=== PATIENT | male | born 1930 | race Caucasian/White ===

== ENCOUNTER 2018-03-29 07:17 | Inpatient (IN) | payer BC, MEDICARE ==
[~2018-03-29] VITALS: Ht 165.1 cm; Wt 60.0 kg
[2018-03-29] MEDS ORDERED: ASPIRIN 81 MG TABLET CHEW PO ONE (07:30)
[2018-03-29] MEDS ORDERED: SODIUM CHLORIDE FLUSH 10ML SYR IVF ONE (07:30)
[2018-03-29 07:54] LABS: ALBUMIN 3.4 g/dL (3.4-5.0); ANION GAP 5 mmol/L (5-15); CALCIUM 8.7 mg/dL (8.5-10.1); CHLORIDE 108 mmol/L (98-107); CREATININE 0.91 mg/dL (0.7-1.3)
[2018-03-29 07:55] LABS: BASOPHILS # (AUTO) 0.04 x10^3/uL (0-0.1); BASOPHILS % (AUTO) 1 % (0-1); EOSINOPHILS # (AUTO) 0.13 x10^3/uL (0-0.4); EOSINOPHILS % (AUTO) 2 % (1-7); LYMPHOCYTES # (AUTO) 1.51 x10^3/uL (1-3.4); LYMPHOCYTES % (AUTO) 20 % (22-44); MD NO; MEAN CORPUSCULAR HEMOGLOBIN 32.6 pg (27.5-34.5); MEAN CORPUSCULAR HGB CONC 33.5 g/dL (33.2-36.2); MEAN CORPUSCULAR VOLUME 97.1 fL (81-97); MONOCYTES # (AUTO) 0.71 x10^3/uL (0.2-0.8); MONOCYTES % (AUTO) 9 % (2-9); NEUTROPHILS # (AUTO) 5.14 x10^3/uL (1.8-6.8); NEUTROPHILS % (AUTO) 68 % (42-75); PLATELET COUNT 343 x10^3/uL (130-400); RED BLOOD COUNT 4.43 x10^6/uL (4.38-5.82); RED CELL DISTRIBUTION WIDTH 14.1 % (9.4-14.8)
[2018-03-29 07:57] LABS: TROPONIN I < 0.015 ng/mL (0.000-0.045)
[2018-03-29] MEDS ORDERED: ATOR10TA9 PO (09:59)
[2018-03-29] MEDS ORDERED: ASPI-496 PO (10:00)
[2018-03-29] MEDS ORDERED: ASPIRIN 81 MG TABLET CHEW ONE (10:01)
[2018-03-29] MEDS ORDERED: ERYTHROMYCIN OPHTH 0.5%, 1GM EACHEYE SCH (11:30)
[2018-03-29 11:37] LABS: THYROID STIMULATING HORMONE 3.55 mIU/L (0.358-3.740)
[2018-03-29 11:44] VITALS: BP 114/57
[2018-03-29] MEDS ORDERED: HEPARIN 5,000 UNITS/ML, 1ML IV ONE (12:00)
[2018-03-29] MEDS ORDERED: HEPARIN 5,000 UNITS/ML, 1ML IV PRN (12:00)
[2018-03-29] MEDS ORDERED: HEPARIN 25,000 UNITS/500ML PMX 500 ML IV PRN (12:00)
[2018-03-29] MEDS ORDERED: ACETAMINOPHEN 325 MG TABLET PO PRN (13:30)
[2018-03-29] MEDS ORDERED: ONDANSETRON ODT 4 MG PO PRN (13:30)
[2018-03-29 13:39] VITALS: BP 117/66
[2018-03-29 13:44] VITALS: BP 108/62
[2018-03-29 13:46] VITALS: BP 114/69
[2018-03-29 13:47] VITALS: BP 121/79
[2018-03-29] MEDS: SODIUM CHLORIDE 0.9% 1,000 ML IV SCH (14:31)
[2018-03-29 20:22] VITALS: BP_SYST 114; BP_SYST 115; BP_SYST 122; BP_DIAS 61; BP_DIAS 65; BP_DIAS 73
[2018-03-29] MEDS ORDERED: ATORVASTATIN CALCIUM 80 MG PO SCH (21:00)
[2018-03-29] MEDS ORDERED: ATORVASTATIN 80 MG TABLET PO SCH (21:00)
[2018-03-30 02:18] VITALS: BP_SYST 104; BP_SYST 116; BP_SYST 118; BP_DIAS 64; BP_DIAS 66; BP_DIAS 70
[2018-03-30 02:37] LABS: BASOPHILS # (AUTO) 0.04 x10^3/uL (0-0.1); BASOPHILS % (AUTO) 1 % (0-1); EOSINOPHILS # (AUTO) 0.15 x10^3/uL (0-0.4); EOSINOPHILS % (AUTO) 2 % (1-7); LYMPHOCYTES # (AUTO) 1.76 x10^3/uL (1-3.4); LYMPHOCYTES % (AUTO) 24 % (22-44); MD NO; MEAN CORPUSCULAR HEMOGLOBIN 32.1 pg (27.5-34.5); MEAN CORPUSCULAR HGB CONC 33.3 g/dL (33.2-36.2); MEAN CORPUSCULAR VOLUME 96.3 fL (81-97); MEAN PLATELET VOLUME 7.3 fL (7.4-10.4); MONOCYTES # (AUTO) 0.72 x10^3/uL (0.2-0.8); MONOCYTES % (AUTO) 10 % (2-9); NEUTROPHILS # (AUTO) 4.62 x10^3/uL (1.8-6.8); NEUTROPHILS % (AUTO) 63 % (42-75); PLATELET COUNT 295 x10^3/uL (130-400); RED BLOOD COUNT 4.07 x10^6/uL (4.38-5.82); RED CELL DISTRIBUTION WIDTH 13.9 % (9.4-14.8)
[2018-03-30 02:47] LABS: ALANINE AMINOTRANSFERASE 23 U/L (12-78); ALBUMIN 2.8 g/dL (3.4-5.0); ANION GAP 4 mmol/L (5-15); CALCIUM 7.8 mg/dL (8.5-10.1); CHLORIDE 112 mmol/L (98-107); CHOLESTEROL, TOTAL 109 mg/dL (140-239); CREATININE 0.74 mg/dL (0.7-1.3); TRIGLYCERIDES 53 mg/dL (50-200); VLDL CHOLESTEROL 11 mg/dL (0-25)
[2018-03-30 02:49] LABS: ALKALINE PHOSPHATASE 82 U/L (45-117); BILIRUBIN,TOTAL 0.5 mg/dL (0.2-1.0); CHOL/HDL RATIO 2.1; HDL CHOL % 47 % (26-37); HDL CHOLESTEROL (DIRECT) 51 mg/dL (40-60); LDL CHOLESTEROL,CALCULATED 47 mg/dL (54-169); LDL/HDL RATIO 0.9 (0.5-3.0); TOTAL PROTEIN 5.7 g/dL (6.4-8.2)
[2018-03-30] MEDS: SODIUM CHLORIDE 0.9% 1,000 ML IV SCH (03:01)
[2018-03-30 07:44] VITALS: BP_SYST 118; BP_SYST 96; BP_DIAS 56; BP_DIAS 68
[2018-03-30 07:45] VITALS: BP 110/63
[2018-03-30] MEDS ORDERED: ASPIRIN 81 MG TABLET EC PO SCH (09:00)
[2018-03-30] MEDS ORDERED: APIXABAN 5 MG TABLET PO SCH (09:30)
[2018-03-30] MEDS ORDERED: APIXABAN 2.5 MG TABLET PO SCH (11:00)
[2018-03-30 12:46] VITALS: BP 116/68
[2018-03-30] MEDS ORDERED: APIX2.5T PO (15:06)
== END 2018-03-30 16:40 | disposition home or self-care (01) | DRG 74 ==
LOC: ED 08:47 → EDIP 10:24 → 5SO 11:38 → DCLOUNGE 03-30 16:29
PROVIDERS: ADMIT Family Medicine; ATTEND Family Medicine
DX: G90.8 Other disorders of autonomic nervous system (principal); D68.69 Other thrombophilia; E78.5 Hyperlipidemia, unspecified; H35.30 Unspecified macular degeneration; I25.10 Atherosclerotic heart disease of native coronary artery without angina pectoris; I48.91 Unspecified atrial fibrillation; I08.1 Rheumatic disorders of both mitral and tricuspid valves; W18.39XA Other fall on same level, initial encounter; I25.2 Old myocardial infarction; Z85.118 Personal history of other malignant neoplasm of bronchus and lung; Z87.891 Personal history of nicotine dependence; Z95.5 Presence of coronary angioplasty implant and graft; Y93.89 Activity, other specified; Y92.89 Other specified places as the place of occurrence of the external cause
CPT/HCPCS: 36415; 71045; 80048; 80053; 80061; 82040; 84443; 84481; 84484; 85025; 85520; 93005; 93306; 93880; 99285; G0378; J1644; J7030

== ENCOUNTER 2018-09-07 09:31 | Inpatient (IN) | payer BC, MEDICARE ==
[~2018-09-07] VITALS: Ht 167.6 cm; Wt 63.0 kg
[~2018-09-07 09:31] MED LIST: APIX2.5T PO; ASPI-496 PO; ATOR10TA9 PO
[2018-09-07] MEDS: SODIUM CHLORIDE 0.9% 1,000 ML IV SCH ×2 (09:48→17:48)
[2018-09-07] MEDS ORDERED: CEFAZOLIN PMX 1GM/50ML 50 ML IVPB ONE (10:00)
[2018-09-07 10:03] VITALS: BP 162/86
[2018-09-07] MEDS ORDERED: ROSU20TA PO (10:15)
[2018-09-07] MEDS ORDERED: NITR0.4T SL (10:15)
[2018-09-07] MEDS ORDERED: eye vitamin PO (10:18)
[2018-09-07 10:30] LABS: BASOPHILS # (AUTO) 0.03 x10^3/uL (0-0.1); BASOPHILS % (AUTO) 1 % (0-1); EOSINOPHILS # (AUTO) 0.05 x10^3/uL (0-0.4); EOSINOPHILS % (AUTO) 1 % (1-7); LYMPHOCYTES # (AUTO) 1.69 x10^3/uL (1-3.4); LYMPHOCYTES % (AUTO) 28 % (22-44); MD NO; MEAN CORPUSCULAR HEMOGLOBIN 31.8 pg (27.5-34.5); MEAN CORPUSCULAR HGB CONC 33.4 g/dL (33.2-36.2); MEAN CORPUSCULAR VOLUME 95.2 fL (81-97); MONOCYTES # (AUTO) 0.69 x10^3/uL (0.2-0.8); MONOCYTES % (AUTO) 11 % (2-9); NEUTROPHILS # (AUTO) 3.71 x10^3/uL (1.8-6.8); NEUTROPHILS % (AUTO) 60 % (42-75); PLATELET COUNT 366 x10^3/uL (130-400); RED BLOOD COUNT 4.18 x10^6/uL (4.38-5.82); RED CELL DISTRIBUTION WIDTH 13.3 % (9.4-14.8)
[2018-09-07 10:41] LABS: ANION GAP 5 mmol/L (5-15); CALCIUM 8.5 mg/dL (8.5-10.1); CHLORIDE 107 mmol/L (98-107)
[2018-09-07] MEDS ORDERED: FENTANYL PF 100 MCG/2ML ONE (11:19)
[2018-09-07] MEDS ORDERED: MIDAZOLAM 1 MG/ML, 2ML ONE (11:19)
[2018-09-07] MEDS ORDERED: LIDOCAINE 1%, 20ML ONE (11:19)
[2018-09-07] MEDS ORDERED: CEFAZOLIN PMX 1GM/50ML 50 ML ONE (11:19)
[2018-09-07] MEDS ORDERED: CEFAZOLIN 1,000 MG ONE (11:20)
[2018-09-07] MEDS ORDERED: NITROGLYCERIN 0.4 MG BOTTLE (25 TABS) SL PRN (13:00)
[2018-09-07] MEDS ORDERED: ACETAMINOPHEN 325 MG TABLET PO PRN (13:00)
[2018-09-07] MEDS ORDERED: Hold all anticoagulants for 24 hours MC PRN (13:00)
[2018-09-07 17:21] VITALS: BP 130/75
[2018-09-07 19:44] VITALS: BP 123/75
[2018-09-07] MEDS: SODIUM CHLORIDE FLUSH 10ML SYR IVF SCH (20:43)
[2018-09-07] MEDS: CEFAZOLIN PMX 1GM/50ML 50 ML IVPB SCH (20:43)
[2018-09-07] MEDS ORDERED: APIXABAN 2.5 MG TABLET PO SCH (21:00)
[2018-09-07] MEDS ORDERED: EYE VITAMIN PO SCH (21:00)
[2018-09-07] MEDS ORDERED: ATORVASTATIN 40 MG TABLET PO SCH (21:00)
[2018-09-08 01:51] VITALS: BP 148/74
[2018-09-08] MEDS: CEFAZOLIN PMX 1GM/50ML 50 ML IVPB SCH (04:55)
[2018-09-08 07:32] VITALS: BP 134/73
[2018-09-08] MEDS ORDERED: ACET325T14 PO (08:37)
[2018-09-08] MEDS: SODIUM CHLORIDE FLUSH 10ML SYR IVF SCH (10:59)
[2018-09-08] MEDS ORDERED: APIXABAN 2.5 MG TABLET PO SCH (21:00)
== END 2018-09-08 11:21 | disposition home or self-care (01) | DRG 243 ==
LOC: CACL 09:31 → ORIP 12:52 → 5SO 16:12 → DCLOUNGE 09-08 11:04
PROVIDERS: ADMIT Internal Medicine Cardiovascular Disease; ATTEND Internal Medicine Cardiovascular Disease
PROC: 0JH604Z Insertion of Pacemaker, Single Chamber into Chest Subcutaneous Tissue and Fascia, Open Approach (ICD-10-PCS; principal; 2018-09-07)
PROC: 02HK3JZ Insertion of Pacemaker Lead into Right Ventricle, Percutaneous Approach (ICD-10-PCS; 2018-09-07)
DX: I49.5 Sick sinus syndrome (principal); D68.69 Other thrombophilia; E78.5 Hyperlipidemia, unspecified; I25.10 Atherosclerotic heart disease of native coronary artery without angina pectoris; I48.0 Paroxysmal atrial fibrillation; Z85.118 Personal history of other malignant neoplasm of bronchus and lung; Z92.21 Personal history of antineoplastic chemotherapy; Z95.5 Presence of coronary angioplasty implant and graft
CPT/HCPCS: 33207; 36415; 71045; 80048; 85025; 99156; 99157; C1779; C1786; C1892; G0378; J0690; J2250; J3010; J3490

== ENCOUNTER 2020-04-15 10:38 | Outpatient (CLI) | payer BC, MEDICARE ==
[~2020-04-15 10:38] MED LIST changes: +ACET325T14 PO; +NITR0.4T41 SL; +ROSU20TA2 PO; +eye vitamin PO
== END 2020-04-15 23:59 | disposition home or self-care (01) ==
LOC: CVU 10:38
PROVIDERS: ATTEND Internal Medicine Cardiovascular Disease
DX: I08.8 Other rheumatic multiple valve diseases (principal); I48.20 Chronic atrial fibrillation, unspecified; I25.2 Old myocardial infarction
CPT/HCPCS: 93306